=== PATIENT | male | born 1985 | race Caucasian/White ===

== ENCOUNTER 2017-12-11 11:50 | Day surgery (SDC) | payer BC ==
--- NOTE | 2017-12-04 10:47 | HP ---
CC: Leonardo Garnica MD.* ADMITTING HISTORY AND PHYSICAL: DATE OF ADMISSION: 12/11/17 ADMITTING DIAGNOSES: 1. Gross hematuria. 2. Absent right kidney. 3. History of right ureterocele. PLANNED PROCEDURE: Cystoscopy, right retrograde, right ureteroscopy, and possible fulguration. SURGEON: Leonardo Garnica MD HISTORY OF PRESENT ILLNESS: Paul Moy is a 32-year-old gentleman who I had originally evaluated back in 2014 and at that time he was noted to have an absent right kidney and a right ureterocele with no communication to any ureter. He had undergone transurethral incision of the right ureterocele in July of 2015 and has done well up until recently when he started having recurrent episodes of gross hematuria. A CT urogram had been done prior to the surgery in 2015 which basically had revealed findings consistent with an absent right kidney and right ureterocele with no other abnormalities noted related to the genitourinary system. A recent flexible cystoscopy in my office revealed stricture at the urethral meatus. The bladder was examined. The left ureteral orifice appears normal. Bleeding was noted from stenotic right orifice and I did not visualize any significant ureterocele. I suspect that he has some remnant of a distal right ureter which never developed or progressed and the bleeding is coming from the mucosa of this structure and it is possible that if the endoscopic procedure cannot control this, he may require formal excision of this blind ending right distal ureter. PAST MEDICAL HISTORY: Significant for erectile dysfunction. MEDICATIONS ON ADMISSION: Cialis 5 mg daily. ALLERGIES: AMOXICILLIN. PHYSICAL EXAMINATION GENERAL: Reveals a pleasant healthy-appearing young gentleman. VITAL SIGNS: Blood pressure is 106/64, pulse 90 per minute, oxygen saturation 98% on room air. LUNGS: Clear bilaterally. CARDIOVASCULAR: Regular, rate, and rhythm. S1 and S2. No murmurs. ABDOMEN: Soft without masses. There is no flank tenderness. IMPRESSION: A 32-year-old gentleman who has a solitary left kidney and an absent right kidney. 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 The plan is for cystoscopy, right retrograde, right ureteroscopy, and possible fulguration. [id number] #: [id number] MTDD
[~2017-12-11 11:50] MED LIST: Buffered Lidocaine 0.9% SYRIN* 5 ML/SYR SYRINGE INTRADERM ONE; Dexamethasone IV* 4 MG/ML 1 ML (4 MG) IV SLOW PU ONE; Famotidine IV* 10 MG/ML 2 ML (20 mg) IV ONE
[2017-12-11] MEDS ORDERED: Famotidine IV* 10 MG/ML 2 ML (20 mg) ONE (12:00)
[2017-12-11] MEDS ORDERED: Dexamethasone IV* 4 MG/ML 1 ML (4 MG) ONE (12:00)
[2017-12-11] MEDS ORDERED: Levofloxacin 500 MG IVPREMIX(* 500 MG/100 ML BAG IVPB ONE (12:00)
[2017-12-11] MEDS ORDERED: Naloxone* 0.4 MG/ML 1 ML VIAL IV PRN (12:31)
[2017-12-11] MEDS ORDERED: DiMENhydriNATE IV* 50 MG/ML VIAL IV PUSH PRN (12:31)
[2017-12-11] MEDS ORDERED: fentaNYL* 50 MCG/ML 2 ML VIAL (100 MCG VIAL) IV PRN (12:31)
[2017-12-11] MEDS ORDERED: oxyCODONE/Acetamin 5/325 MG* TAB PO PRN (12:31)
[2017-12-11] MEDS ORDERED: HYDROcodone/ACETAMIN 5-325 MG* 1 TAB PO PRN (12:31)
[2017-12-11] MEDS ORDERED: Lidocaine 2% PF * 5 ML VIAL ONE (12:38)
[2017-12-11] MEDS ORDERED: Midazolam* 1 MG/ML 5 ML VIAL (5 MG) ONE (12:38)
[2017-12-11] MEDS ORDERED: Propofol* 10 MG/ML 20 ML BTL IV PUSH ONE (12:38)
[2017-12-11] MEDS ORDERED: fentaNYL* 50 MCG/ML 2 ML VIAL (100 MCG VIAL) ONE (12:38)
[2017-12-11] MEDS ORDERED: Iohexol 180 (CONTRAST) 10 ML SDV IV ONE (12:53)
[2017-12-11] MEDS ORDERED: Ondansetron INJ* 2 MG/ML VIAL ONE (13:15)
[2017-12-11] MEDS ORDERED: EPHEDrine (Pressors)* 50 MG/ML VIAL ONE (13:17)
--- NOTE | 2017-12-11 14:31 | RAD ---
INDICATION: Gross hematuria COMPARISONS: July 31, 2015 TECHNIQUE: Fluoroscopy was provided for a retrograde pyelogram. Total fluoroscopy time is: 8 seconds FINDINGS: Spot images demonstrate contrast within the distal right ureter and bladder. IMPRESSION: FLUOROSCOPY WAS PROVIDED FOR A RETROGRADE PYELOGRAM CPT II Codes: G9500
[2017-12-11 14:40] VITALS: BP 141/87
[2017-12-11] MEDS ORDERED: Phenazopyridine TAB* 100 MG PO ONE (15:00)
--- NOTE | 2017-12-12 01:48 | OP ---
DATE OF OPERATION: 12/11/17 - [facility] DATE OF : 83 SURGEON: Leonardo Garnica MD. PRE-OP DIAGNOSES: 1. Hematuria. 2. 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 POST-OP DIAGNOSES: 1. Hematuria. 2. 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 OPERATIVE PROCEDURE: Cystoscopy, right retrograde pyelogram, right ureteroscopy , and fulguration of area in distal right ureter. OPERATIVE FINDINGS: 1. Stricture at urethral meatus. 2. Mild enlargement of median lobe of prostate. 3. Normal-appearing bladder with normal left orifice with clear efflux. 4. Stenotic right orifice with about 7 to 8 cm of distal right ureter with no evidence of any obvious lesions noted in the right ureter either on ureteroscopy or on retrograde pyelogram. INDICATIONS: Paul Moy is a 32-year-old gentleman who had originally been evaluated and noted to have an absent right kidney. He also had a right ureterocele and had undergone transurethral incision and resection of the ureterocele within the last couple of years. He had recently been evaluated for urinary bleeding and on flexible cystoscopy in the office, I could see blood coming from the orifice of the right ureter, even though there is no right kidney that had been detected on prior ultrasound and CT scan. POSTOPERATIVE CONDITION: Stable. DESCRIPTION OF PROCEDURE: After induction of general anesthesia, the patient was placed in dorsal lithotomy position. Sequential compression devices were in place and functioning. Initial cystoscopy revealed a stricture at the urethral meatus, which was dilated to 32-Armenian. The remainder of the urethra was unremarkable. There was mild prominence of the median lobe of the prostate. The bladder was carefully examined. The left orifice appeared normal with clear efflux noted. On the right side, the orifice appeared stenotic with no efflux noted. Using internal urethrotome, the orifice was initially incised in an effort to facilitate introduction of the ureteroscope. Once this was done, retrograde pyelogram was carried out, this revealed length of the ureter about 67 cm extending to the level of the sacroiliac joint with no evidence of any persistent filling defect noted. A 6-Armenian semi-rigid ureteroscope was then introduced and advanced under direct vision. I could visualize the lumen of the very narrow nonfunctional ureter and I did not visualize any mucosal lesions or calculi. The ureteroscope was carefully advanced and I suspect I could not visualize the very end of the ureter because of how thin the lumen becomes at that point, but the entire area that I could visualize appeared unremarkable. The ureteroscope was carefully withdrawn under direct vision. It is possible that there may be some very small renal tissue remnant that may be attached to the ureter that may have caused the bleeding, but I was not able to confirm or visualize any such structure and it had not also shown up on previous CT or sonogram. There was some bleeding noted where the ureteral orifice had been incised to allow insertion of the ureteroscope and using the electrocautery, that area was carefully fulgurated. At the end of the procedure, hemostasis appeared satisfactory and the bladder was emptied. The patient tolerated the procedure satisfactorily and was transferred back to recovery area in stable condition. If he continues to have any recurrent bleeding, then he may require laparoscopic excision of the distal ureteral remnant. [id number] #: [id number] MTDD
== END 2017-12-11 15:04 | disposition home or self-care (01) ==
LOC: OR 11:50
PROVIDERS: ATTEND Urology
DX: N28.89 Other specified disorders of kidney and ureter (principal); R31.0 Gross hematuria; Q60.0 Renal agenesis, unilateral; N52.9 Male erectile dysfunction, unspecified
CPT/HCPCS: 74420; A9270-GY; J1100; J1956; J2250; J2405; J2704; J3010